=== PATIENT | male | born 1960 | race Caucasian/White ===

== ENCOUNTER 2021-01-11 12:49 | Emergency (ER) | payer OTHER ==
[~2021-01-11] VITALS: Ht 177.8 cm; Wt 81.7 kg
[2021-01-11] MEDS ORDERED: DEPAKOTE ER500 M1 PO (13:07)
[2021-01-11] MEDS ORDERED: BUPROPION HCL PO (13:07)
[2021-01-11] MEDS ORDERED: METHOCARBAMOL500 M2 PO (13:08)
[2021-01-11] MEDS ORDERED: NICOTINE GUM4 MG PO (13:08)
[2021-01-11] MEDS ORDERED: METFORMIN HCL500 M3 PO (13:08)
[2021-01-11] MEDS ORDERED: ATORVASTATIN CA20 MG PO (13:09)
[2021-01-11] MEDS ORDERED: SEROQUEL XR 30300 M1 PO (13:09)
[2021-01-11] MEDS ORDERED: LEVO-T75 MCG PO (13:10)
[2021-01-11 13:18] LABS: ABSOLUTE NEUTROPHILS 6.2 thou/uL (1.4-8.2); BASOPHILS 0.5 % (0.0-2.0); EOSINOPHILS 1.4 % (0.0-3.0); HEMOGLOBIN 14.1 gm/dL (14.0-18.0); LYMPHOCYTES 23.3 % (24.0-44.0); MCH 31.1 pg (26.0-34.0); MCHC 33.5 g/dL (28.0-37.0); MCV 92.7 fL (80.0-100.0); MONOCYTES 9.9 % (1.0-8.0); PLATELET COUNT 234 thou/uL (150-400); POLYS 64.9 % (36.0-66.0); RBC 4.53 mil/uL (4.50-6.00); WBC 9.5 thou/uL (4.0-11.0)
[2021-01-11 13:32] LABS: CALCIUM 9.1 mg/dL (8.5-10.1); POTASSIUM 4.4 mmol/L (3.5-5.1)
[2021-01-11 13:38] LABS: ALBUMIN 3.9 g/dL (3.4-5.0); TOTAL BILIRUBIN 0.6 mg/dL (0.2-1.0); TOTAL PROTEIN 7.5 g/dL (6.4-8.2)
[2021-01-11 15:15] VITALS: BP 144/82
== END 2021-01-11 15:15 | disposition home or self-care (01) ==
LOC: ER 12:49
PROVIDERS: Physician Assistant
DX: R19.7 Diarrhea, unspecified (principal); R10.817 Generalized abdominal tenderness; R42 Dizziness and giddiness; R63.0 Anorexia; F17.210 Nicotine dependence, cigarettes, uncomplicated